=== PATIENT | female | born 1975 | race Caucasian/White ===

== ENCOUNTER 2019-06-05 13:25 | Emergency (ER) | payer SELFPAY ==
[2019-06-05 14:28] LABS: Absolute Lymphocytes (CBC) 1.9 K/uL (0.7-4.9); Basophils % 0.7 % (0-1.3); Hematocrit 42.2 % (36.0-45.0); Lymphocytes % 33.3 % (15.3-44.8); MPV 9.2 fL (7.6-11.3); RBC Red Blood Cell Count 4.84 M/uL (3.86-4.86)
[2019-06-05 14:48] LABS: Albumin 3.6 g/dL (3.4-5.0); Bilirubin Direct 0.2 mg/dL (0-0.2); Bilirubin Total 0.4 mg/dL (0.2-1.0); Potassium 4.2 mmol/L (3.5-5.1)
[2019-06-05 14:55] LABS: Urine Bacteria <20 /HPF (<20); Urine RBC NONE SEEN /HPF (NONE SEEN)
[2019-06-05 14:56] LABS: Urine Culture Reflex Order NOT NEEDED
[2019-06-05] MEDS ORDERED: ONDANSETRON 4 MG/2 ML VIAL ONE (15:08)
[2019-06-05] MEDS ORDERED: KETOROLAC 30 MG/ML INJ ONE (15:08)
[2019-06-05 15:37] LABS: Urine Blood NEGATIVE (NEG); Urine Glucose NEGATIVE (NEG); Urine Protein NEGATIVE (NEG)
--- NOTE | 2019-06-05 16:07 | RAD REPORT ---
EXAM DESCRIPTION: CT - Abdomen Pelvis W Contrast - 06/05/2019 3:38 pm CLINICAL HISTORY: ABD PAIN COMPARISON: No comparisons TECHNIQUE: Biphasic, helical CT imaging of the abdomen and pelvis was performed following 100 ml non -ionic IV contrast. No oral contrast administered. All CT scans are performed using dose optimization technique as appropriate and may include automated exposure control or mA/KV adjustment according to patient size. FINDINGS: No suspicious findings in the lung bases. The liver, spleen, and pancreas show no suspicious findings. Gallbladder and biliary tree are also wi thout suspicious finding. Symmetric renal function is seen with no hydronephrosis or suspicious renal mass. No pyelonephritis o r acute parenchymal process. No urinary bladder wall thickening. No adrenal abnormalities. Uterus is absent. Ovaries are absent or atrophic. No dilated bowel loops or bowel wall thickening. Colon is redundant with moderate stool volume. Diver ticulosis is minimal. No acute colon finding. No evidence for appendicitis. The appendix is not clear ly defined. No free air, free fluid or inflammatory stranding. A 2.5 centimeter fat only infraumbili zuleyka midline ventral hernia is present. No congestion, edema or bowel involvement. No suspicious bony findings. IMPRESSION: Contrast enhanced CT abdomen and pelvis showing no acute finding. Nonacute findings detailed in the body of the report.
--- NOTE | 2019-06-05 16:20 | ER ---
Nurse's Notes [facility] Name: Roseanna Yi Age: 44 yrs Sex: Female : 1975 Arrival Date: 06/05/2019 Time: 13:26 Bed 20 Private MD: Diagnosis: Abdominal tenderness Presentation: 06/05 13:28 Presenting complaint: EMS states: pt from [facility] ([place] sitting in group therapy, tw2 started c/o nauseousness, then stomach pain, the stomach pain has subsided but now pt is complaining of low back/kidney pain, lower RIGHT quadrant abdomen pain when it did hurt, vs stable. Transition of care: patient was not received from another setting of care. Onset of symptoms was June 05, 2019. Risk Assessment: Do you want to hurt yourself or someone else? Patient reports no desire to harm self or others. Initial Sepsis Screen: Does the patient meet any 2 criteria? No. Patient's initial sepsis screen is negative. Does the patient have a suspected source of infection? No. Patient's initial sepsis screen is negative. Care prior to arrival: None. 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 tw2 Historical: - Allergies: 13:36 Macrodantin; tw2 16:16 mayonaisse; tw2 - Home Meds: 16:16 lamotrigine 25 mg oral tab 2 tabs 2 times per day [Active]; hydroxyzine HCl 25 mg Oral tw2 tab 1 tab 3 times per day [Active]; Latuda 40 mg oral tab 1 tab once daily [Active]; Vitamin Oral tab 1 tab once daily [Active]; Dulcolax (bisacodyl) 5 mg Oral TbEC 1 tab [Active]; melatonin 1 mg Oral tab [Active]; loratadine 10 mg oral tab 1 tab once daily [Active]; benzonatate 100 mg oral cap 1 cap 3 times per day [Active]; - PMHx: 16:16 Bipolar disorder; tw2 - Immunization history:: Adult Immunizations. - Social history:: Smoking status: . - Ebola Screening: : Patient denies travel to an Ebola-affected area in the 21 days before illness onset. Screenin:35 Abuse screen: Denies threats or abuse. Nutritional screening: No deficits noted. tw2 Tuberculosis screening: No symptoms or risk factors identified. Fall Risk None identified. Assessment: 13:30 General: Appears in no apparent distress. Behavior is calm, cooperative, appropriate tw2 for age. Pain: Complains of pain in abdomen and right lower quadrant. Neuro: Level of Consciousness is awake, alert, obeys commands, Oriented to person, place, time, situation. Cardiovascular: Heart tones S1 S2 Patient's skin is warm and dry. Respiratory: Airway is patent Respiratory effort is even, unlabored, Respiratory pattern is regular, symmetrical, Breath sounds are clear bilaterally. GI: No signs and/or symptoms were reported involving the gastrointestinal system. Abdomen is flat, Bowel sounds present X 4 quads. Reports lower abdominal pain, nausea. : No signs and/or symptoms were reported regarding the genitourinary system. EENT: No signs and/or symptoms were reported regarding the EENT system. Derm: No signs and/or symptoms reported regarding the dermatologic system. Musculoskeletal: Range of motion: intact in all extremities. 14:59 Reassessment: Patient appears in no apparent distress at this time. No changes from tw2 previously documented assessment. Patient and/or family updated on plan of care and expected duration. Pain level reassessed. Patient is alert, oriented x 3, equal unlabored respirations, skin warm/dry/pink. 15:54 Reassessment: Patient appears in no apparent distress at this time. No changes from tw2 previously documented assessment. Patient and/or family updated on plan of care and expected duration. Pain level reassessed. Patient is alert, oriented x 3, equal unlabored respirations, skin warm/dry/pink. 16:17 Reassessment: pt c/o of pain at this time, provider notified. Patient states symptoms tw2 have not improved. 16:44 Reassessment: Patient appears in no apparent distress at this time. No changes from tw2 previously documented assessment. Patient and/or family updated on plan of care and expected duration. Pain level reassessed. Patient is alert, oriented x 3, equal unlabored respirations, skin warm/dry/pink. Vital Signs: 13:34 BP 117 / 98; Pulse 77; Resp 18; Temp 98.0(O); Pulse Ox 98% on R/A; Weight 68.04 kg (R); tw2 Height 5 ft. 3 in. (160.02 cm); Pain 6/10; 14:59 BP 136 / 99; Pulse 86; Resp 17; Pulse Ox 100% on R/A; tw2 15:54 BP 125 / 96; Pulse 64; Resp 17; Pulse Ox 98% on R/A; tw2 13:34 Body Mass Index 26.57 (68.04 kg, 160.02 cm) tw2 ED Course: 13:26 Patient arrived in ED. tw2 13:26 Bed in low position. Call light in reach. Pulse ox on. NIBP on. tw2 13:32 Barb Tran, RN is Primary Nurse. tw2 13:34 Triage completed. tw2 13:35 Arm band placed on. tw2 13:52 Dirk Rosales PA is PHCP. jr8 13:52 Sal Arenas MD is Attending Physician. jr8 15:00 Inserted saline lock: 20 gauge in right antecubital area, using aseptic technique. tw2 Blood collected. 15:38 CT Abd/Pelvis - IV Contrast Only In Process Unspecified. EDMS 16:44 No provider procedures requiring assistance completed. IV discontinued, intact, tw2 bleeding controlled, No redness/swelling at site. Pressure dressing applied. Administered Medications: 15:06 Drug: Zofran 4 mg Route: IVP; Site: right antecubital; tw2 16:22 Follow up: Response: No adverse reaction; Nausea is decreased tw2 15:08 Drug: TORadol - Ketorolac 15 mg Route: IVP; Site: right antecubital; tw2 16:22 Follow up: Response: No adverse reaction tw2 16:34 Drug: Tylenol 1000 mg Route: PO; tw2 16:44 Follow up: Response: No adverse reaction tw2 Outcome: 16:19 Discharge ordered by . jr8 16:45 Discharged to home ambulatory, with significant other. tw2 16:45 Condition: stable 16:45 Discharge instructions given to patient, significant other, Instructed on discharge instructions, follow up and referral plans. Demonstrated understanding of instructions, follow-up care. 16:45 Patient left the ED. tw2 Signatures: Dispatcher [employer] EDMS Dirk Rosales PA PA jr8 Barb Tran, RN RN tw2 Corrections: (The following items were deleted from the chart) 14:59 13:34 Pulse 77bpm; Resp 18bpm; Pulse Ox 98% RA; Temp 98.0F Oral; 68.04 kg Reported; tw2 Height 5 ft. 3 in.; BMI: 26.5; Pain 6/10; tw2
--- NOTE | 2019-06-05 16:20 | EDPHYS ---
Physician Documentation [facility] Name: Roseanna Yi Age: 44 yrs Sex: Female : 1975 Arrival Date: 06/05/2019 Time: 13:26 Bed 20 Private MD: ED Physician Sal Arenas HPI: 06/05 15:22 This 44 yrs old Female presents to ER via EMS with complaints of Nausea, jr8 Abdominal Pain. 15:22 The patient presents to the emergency department with nausea, abdominal pain. Onset: jr8 The symptoms/episode began/occurred acutely, today. Possible causes: unknown. The symptoms are aggravated by nothing. The symptoms are alleviated by nothing. Associated signs and symptoms: The patient has no apparent associated signs or symptoms. Severity of symptoms: At their worst the symptoms were moderate in the emergency department the symptoms are unchanged. The patient has not experienced similar symptoms in the past. The patient has not recently seen a physician. 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 tw2 Historical: - Allergies: 13:36 Macrodantin; tw2 16:16 mayonaisse; tw2 - Home Meds: 16:16 lamotrigine 25 mg oral tab 2 tabs 2 times per day [Active]; hydroxyzine HCl 25 mg Oral tw2 tab 1 tab 3 times per day [Active]; Latuda 40 mg oral tab 1 tab once daily [Active]; Vitamin Oral tab 1 tab once daily [Active]; Dulcolax (bisacodyl) 5 mg Oral TbEC 1 tab [Active]; melatonin 1 mg Oral tab [Active]; loratadine 10 mg oral tab 1 tab once daily [Active]; benzonatate 100 mg oral cap 1 cap 3 times per day [Active]; - PMHx: 16:16 Bipolar disorder; tw2 - Immunization history:: Adult Immunizations. - Social history:: Smoking status: . - Ebola Screening: : Patient denies travel to an Ebola-affected area in the 21 days before illness onset. ROS: 15:22 Eyes: Negative for injury, pain, redness, and discharge, ENT: Negative for injury, jr8 pain, and discharge, Neck: Negative for injury, pain, and swelling, Cardiovascular: Negative for chest pain, palpitations, and edema, Respiratory: Negative for shortness of breath, cough, wheezing, and pleuritic chest pain, Back: Negative for injury and pain, MS/Extremity: Negative for injury and deformity, Skin: Negative for injury, rash, and discoloration, Neuro: Negative for headache, weakness, numbness, tingling, and seizure. 15:22 Abdomen/GI: Positive for abdominal pain, nausea, Negative for vomiting, diarrhea, constipation, abdominal cramps, abdominal distension. Exam: 15:22 Eyes: Pupils equal round and reactive to light, extra-ocular motions intact. Lids and jr8 lashes normal. Conjunctiva and sclera are non-icteric and not injected. Cornea within normal limits. Periorbital areas with no swelling, redness, or edema. ENT: Nares patent. No nasal discharge, no septal abnormalities noted. Tympanic membranes are normal and external auditory canals are clear. Oropharynx with no redness, swelling, or masses, exudates, or evidence of obstruction, uvula midline. Mucous membranes moist. Neck: Trachea midline, no thyromegaly or masses palpated, and no cervical lymphadenopathy. Supple, full range of motion without nuchal rigidity, or vertebral point tenderness. No Meningismus. Cardiovascular: Regular rate and rhythm with a normal S1 and S2. No gallops, murmurs, or rubs. Normal PMI, no JVD. No pulse deficits. Respiratory: Lungs have equal breath sounds bilaterally, clear to auscultation and percussion. No rales, rhonchi or wheezes noted. No increased work of breathing, no retractions or nasal flaring. Back: No spinal tenderness. No costovertebral tenderness. Full range of motion. Skin: Warm, dry with normal turgor. Normal color with no rashes, no lesions, and no evidence of cellulitis. MS/ Extremity: Pulses equal, no cyanosis. Neurovascular intact. Full, normal range of motion. Neuro: Awake and alert, GCS 15, oriented to person, place, time, and situation. Cranial nerves II-XII grossly intact. Motor strength 5/5 in all extremities. Sensory grossly intact. Cerebellar exam normal. Normal gait. 15:22 Abdomen/GI: Inspection: scar(s), are noted in the scar noted and without acute abnormality , Bowel sounds: active, Palpation: soft, in all quadrants, moderate abdominal tenderness, in the right lower quadrant, mass, is not appreciated, rebound tenderness, is not appreciated, voluntary guarding, is not appreciated, involuntary guarding, is not appreciated, no appreciated organomegaly, Indicators: McBurney's point is not tender, Gracia's sign is negative, Rovsing's sign is negative, Liver: tenderness, is not appreciated. Vital Signs: 13:34 BP 117 / 98; Pulse 77; Resp 18; Temp 98.0(O); Pulse Ox 98% on R/A; Weight 68.04 kg (R); tw2 Height 5 ft. 3 in. (160.02 cm); Pain 6/10; 14:59 BP 136 / 99; Pulse 86; Resp 17; Pulse Ox 100% on R/A; tw2 15:54 BP 125 / 96; Pulse 64; Resp 17; Pulse Ox 98% on R/A; tw2 13:34 Body Mass Index 26.57 (68.04 kg, 160.02 cm) tw2 MDM: 13:52 Patient medically screened. jr8 16:17 Data reviewed: vital signs, nurses notes, lab test result(s), radiologic studies, CT jr8 scan. Data interpreted: Pulse oximetry: on room air is 98 %. Interpretation: normal. Counseling: I had a detailed discussion with the patient and/or guardian regarding: the historical points, exam findings, and any diagnostic results supporting the discharge/admit diagnosis, lab results, radiology results, the need for outpatient follow up, a family practitioner, a mobile lounge driver or operator, to return to the emergency department if symptoms worsen or persist or if there are any questions or concerns that arise at home. 16:18 Special discussion: Based on the patient's Hx, exam, and Dx evaluation, there is no [facility] indication for emergent surgery or inpatient Tx. It is understood by the patient/guardian that if the Sx's persist or worsen they need to return immediately for re-evaluation. 06/05 14:08 Order name: Basic Metabolic Panel; Complete Time: 15:06/05 14:08 Order name: CBC with Diff; Complete Time: 15:06/05 14:08 Order name: Creatinine for Radiology; Complete Time: 15:06/05 14:08 Order name: Hepatic Function; Complete Time: 15:06/05 14:08 Order name: Lipase; Complete Time: 15:06/05 14:08 Order name: Urine Microscopic Only; Complete Time: 15:04 06/05 14:08 Order name: IV Saline Lock; Complete Time: 14:58 06/05 14:08 Order name: Labs collected and sent; Complete Time: 14:58 06/05 15:04 Order name: CT Abd/Pelvis - IV Contrast Only; Complete Time: 16:17 06/05 15:09 Order name: Urine Dipstick--Ancillary (enter results); Complete Time: 15:39 bd 06/05 15:09 Order name: Urine --Ancillary (enter results); Complete Time: 15:39 bd 06/05 14:08 Order name: Urine Test (obtain specimen); Complete Time: 14:58 06/05 14:08 Order name: Urine Dipstick-Ancillary (obtain specimen); Complete Time: 14:58 Administered Medications: 15:06 Drug: Zofran 4 mg Route: IVP; Site: right antecubital; tw2 16:22 Follow up: Response: No adverse reaction; Nausea is decreased tw2 15:08 Drug: TORadol - Ketorolac 15 mg Route: IVP; Site: right antecubital; tw2 16:22 Follow up: Response: No adverse reaction tw2 16:34 Drug: Tylenol 1000 mg Route: PO; tw2 16:44 Follow up: Response: No adverse reaction tw2 Disposition: 16:51 Co-signature as Attending Physician, Sal Arenas MD. rn Disposition: 06/05/19 16:19 Discharged to Home. Impression: Abdominal tenderness. - Condition is Stable. - Discharge Instructions: Abdominal Pain, Adult. - Medication Reconciliation Form, Thank You Letter, Antibiotic Education, Prescription Opioid Use form. - Follow up: Private Physician; When: 2 - 3 days; Reason: Recheck today's complaints, Continuance of care, Re-evaluation by your physician. - Problem is new. - Symptoms have improved. Signatures: Dispatcher [employer] EDSal Choudhary MD MD rn Roszak, Josh, PA PA jr8 Barb Tran RN RN tw2 Corrections: (The following items were deleted from the chart) 16:45 16:19 06/05/2019 16:19 Discharged to Home. Impression: Abdominal tenderness. Condition tw2 is Stable. Forms are Medication Reconciliation Form, Thank You Letter, Antibiotic Education, Prescription Opioid Use. Follow up: Private Physician; When: 2 - 3 days; Reason: Recheck today's complaints, Continuance of care, Re-evaluation by your physician. Problem is new. Symptoms have improved. jr8
[2019-06-05] MEDS ORDERED: ACETAMINOPHEN 500 MG TAB ONE (16:37)
[2019-06-05 23:08] VITALS: TEMP 98
[2019-06-05 23:11] VITALS: BP 125/96; O2SAT 98
== END 2019-06-05 16:45 | disposition home or self-care (01) ==
LOC: ER 13:25
DX: R10.819 Abdominal tenderness, unspecified site (principal); F31.9 Bipolar disorder, unspecified; Z88.8 Allergy status to other drugs, medicaments and biological substances; Z91.018 Allergy to other foods
CPT/HCPCS: 36415; 74177; 80048; 80076; 81003; 81015; 81025; 83690; 85025; 96374; 96375; 99284; J2405; Q9967